=== PATIENT | female | born 1955 | race Caucasian/White ===

== ENCOUNTER 2021-06-24 22:59 | Inpatient (IN) | payer OTHER ==
[2021-06-25] MEDS ORDERED: ACETAMINOPHEN 1000 MG/100 ML BAG IVPB ONE (00:25)
[2021-06-25] MEDS ORDERED: ONDANSETRON 4 MG/2 ML VIAL IVPUSH ONE (00:25)
[2021-06-25] MEDS ORDERED: ACETAMINOPHEN INJECTION 100 ML IVPB ONE (00:28)
[2021-06-25 00:29] LABS: HEMATOCRIT 36.4 % (32.4-45.2); HEMOGLOBIN 12.6 GM/dL (10.7-15.3); MCH 27.9 pg (25.7-33.7); MCHC 34.7 g/dl (32.0-36.0); MEAN CELL VOLUME 80.3 fl (80-96); MEAN PLT VOLUME 9.3 fl (7.5-11.1); PLATELET COUNT 203 10^3/uL (134-434); RBC 4.53 M/mm3 (3.60-5.2); RDW 15.5 % (11.6-15.6); WHITE BLOOD COUNT 12.9 K/mm3 (4.0-10.0)
[2021-06-25] MEDS ORDERED: ONDANSETRON 4 MG/2 ML VIAL ONE (00:29)
[2021-06-25 00:47] LABS: CHLORIDE 99 mmol/L (98-107); SODIUM 137 mmol/L (136-145)
[2021-06-25 00:50] LABS: BLOOD UREA NITROGEN 58.5 mg/dL (7-18); CALCIUM 8.2 mg/dL (8.5-10.1); CO2 29 mmol/L (21-32); GLUCOSE,RANDOM 137 mg/dL (74-106); MAGNESIUM 2.4 mg/dL (1.8-2.4)
[2021-06-25] MEDS ORDERED: SODIUM CHLORIDE 1,000 ML IV ONE (00:51)
[2021-06-25 00:53] LABS: CREATININE 1.4 mg/dL (0.55-1.3); SGOT/AST 20 U/L (15-37); SGPT/ALT 39 U/L (13-61)
[2021-06-25 00:55] LABS: BILIRUBIN,TOTAL 0.8 mg/dL (0.2-1); TOT PROT 7.2 g/dl (6.4-8.2)
[2021-06-25 00:56] LABS: ALK PHOS 173 U/L (45-117)
[2021-06-25 00:58] LABS: ANION GAP 9 MMOL/L (8-16)
[2021-06-25] MEDS ORDERED: POTASSIUM CHLORIDE TABS 20 MEQ TABLET.ER (FP) PO ONE ×2 (01:20→02:59)
[2021-06-25 01:54] LABS: EPI CELLS 16 /uL (0-25.1); HYALINE CASTS 3 /uL (0-3.1); PH,URINE 5.5 (5.0-8.0); URINE APPEARANCE CLOUDY; URINE BACTERIA 3237 /uL (0-1359); URINE BILIRUBIN NEGATIVE (NEGATIVE); URINE COLOR YELLOW; URINE GLUCOSE (UA) NEGATIVE (NEGATIVE); URINE KETONE NEGATIVE (NEGATIVE); URINE LEUK ESTERASE 3+ (NEGATIVE); URINE NITRITE NEGATIVE (NEGATIVE); URINE PROTEIN 1+ (NEGATIVE); URINE UROBILINOGEN 0.2 mg/dL (0.2-1.0); URINE WBC 503 /uL (0-25.8)
[2021-06-25 02:15] LABS: ANISOCYTOSIS 0; MACROCYTOSIS 0
[2021-06-25] MEDS ORDERED: LACTATED RINGERS SOLUTION 1000 ML INFUS.BAG IV ONE (02:45)
[2021-06-25] MEDS ORDERED: CEFTRIAXONE 1 GM/50 ML BAG ONE (03:00)
[2021-06-25] MEDS ORDERED: LIDOCAINE 5% TOPICAL PATCH TP PRN (04:23)
[2021-06-25] MEDS ORDERED: SODIUM CHLORIDE 1,000 ML with POTASSIUM CHLORIDE 20 MEQ IV SCH (04:30)
[2021-06-25] MEDS: ACETAMINOPHEN 1000 MG/100 ML BAG IVPB PRN ×3 (06:53→18:36)
[2021-06-25] MEDS: HEPARIN NA (PORCINE) 5,000 UNITS/ML 1ML VIAL SQ SCH ×3 (06:54→21:19)
[2021-06-25 08:36] LABS: URINE RBC 29.6 /uL (0-23.9)
[2021-06-25 10:54] LABS: HEMATOCRIT 34.5 % (32.4-45.2); HEMOGLOBIN 11.8 GM/dL (10.7-15.3); MCH 27.9 pg (25.7-33.7); MCHC 34.2 g/dl (32.0-36.0); MEAN CELL VOLUME 81.5 fl (80-96); MEAN PLT VOLUME 9.4 fl (7.5-11.1); PLATELET COUNT 190 10^3/uL (134-434); RBC 4.23 M/mm3 (3.60-5.2); RDW 15.3 % (11.6-15.6); WHITE BLOOD COUNT 10.2 K/mm3 (4.0-10.0)
[2021-06-25 10:56] LABS: CALCIUM 7.7 mg/dL (8.5-10.1)
[2021-06-25 10:57] LABS: BLOOD UREA NITROGEN 50.4 mg/dL (7-18); MAGNESIUM 2.3 mg/dL (1.8-2.4)
[2021-06-25 11:00] LABS: CREATININE 1.2 mg/dL (0.55-1.3); PHOSPHOROUS 3.4 mg/dL (2.5-4.9)
[2021-06-25] MEDS ORDERED: DEXTROSE 5%-WATER 100 ML IVPB ONE (15:58)
[2021-06-25] MEDS ORDERED: cefTRIAXone SODIUM 1 GM VIAL ONE (15:58)
[2021-06-25] MEDS: CEFTRIAXONE 1 GM in DEXTROSE 5%-WATER 100 ML IVPB SCH (15:59)
[2021-06-25] MEDS: SODIUM CHLORIDE 0.9%/KCL 20 MEQ/1,000 ML INFUS.BAG IV SCH (18:36)
[2021-06-25] MEDS: POTASSIUM CHLORIDE TABS 20 MEQ TABLET.ER (FP) PO SCH (21:19)
[2021-06-25] MEDS: LIDOCAINE PATCH REMOVAL MC SCH (21:28)
[2021-06-25] MEDS: NYSTATIN POWDER 100,000 UNITS/GM - 15 GM TOPICAL POWDER TP SCH (21:28)
[2021-06-26] MEDS: ACETAMINOPHEN 1000 MG/100 ML BAG IVPB PRN ×3 (00:02→23:09)
[2021-06-26] MEDS ORDERED: ACETAMINOPHEN 1000 MG/100 ML BAG IVPB ONE (05:39)
[2021-06-26] MEDS: HEPARIN NA (PORCINE) 5,000 UNITS/ML 1ML VIAL SQ SCH ×3 (06:59→21:29)
[2021-06-26] MEDS ORDERED: cefTRIAXone SODIUM 1 GM VIAL ONE (09:34)
[2021-06-26] MEDS ORDERED: DEXTROSE 5%-WATER 100 ML IVPB ONE (09:34)
[2021-06-26] MEDS: LOSARTAN POTASSIUM 50 MG TABLET PO SCH (10:11)
[2021-06-26] MEDS: POTASSIUM CHLORIDE TABS 20 MEQ TABLET.ER (FP) PO SCH (10:11)
[2021-06-26] MEDS ORDERED: traMADol HCL 50 MG TABLET PO PRN (10:12)
[2021-06-26] MEDS: CEFTRIAXONE 1 GM in DEXTROSE 5%-WATER 100 ML IVPB SCH (10:12)
[2021-06-26] MEDS: NYSTATIN POWDER 100,000 UNITS/GM - 15 GM TOPICAL POWDER TP SCH ×2 (10:12→21:30)
[2021-06-26 12:28] LABS: HEMATOCRIT 33.9 % (32.4-45.2); HEMOGLOBIN 11.4 GM/dL (10.7-15.3); MCH 27.5 pg (25.7-33.7); MCHC 33.6 g/dl (32.0-36.0); MEAN CELL VOLUME 81.7 fl (80-96); MEAN PLT VOLUME 9.3 fl (7.5-11.1); PLATELET COUNT 259 10^3/uL (134-434); RBC 4.16 M/mm3 (3.60-5.2); RDW 15.5 % (11.6-15.6)
[2021-06-26 12:44] LABS: CALCIUM 8.1 mg/dL (8.5-10.1)
[2021-06-26 12:48] LABS: CREATININE 0.8 mg/dL (0.55-1.3)
[2021-06-26 13:01] LABS: ANISOCYTOSIS 2+; MACROCYTOSIS 0
[2021-06-26 13:04] LABS: BLOOD UREA NITROGEN 24.9 mg/dL (7-18)
[2021-06-26] MEDS: SODIUM CHLORIDE 0.9%/KCL 20 MEQ/1,000 ML INFUS.BAG IV SCH (13:48)
[2021-06-26] MEDS ORDERED: IBUPROFEN 400 MG TABLET (FP) PO ONE (13:57)
[2021-06-26] MEDS: SODIUM CHLORIDE 0.45% 1,000 ML IV SCH ×2 (14:07→23:07)
[2021-06-26] MEDS ORDERED: POTASSIUM CHLORIDE TABS 20 MEQ TABLET.ER (FP) PO ONE (17:52)
[2021-06-26] MEDS: LIDOCAINE PATCH REMOVAL MC SCH (23:00)
[2021-06-27] MEDS: ACETAMINOPHEN 1000 MG/100 ML BAG IVPB PRN ×2 (05:17→11:03)
[2021-06-27] MEDS: HEPARIN NA (PORCINE) 5,000 UNITS/ML 1ML VIAL SQ SCH ×3 (05:17→21:29)
[2021-06-27 07:15] LABS: BLOOD UREA NITROGEN 18.4 mg/dL (7-18); CALCIUM 7.7 mg/dL (8.5-10.1)
[2021-06-27 07:19] LABS: CREATININE 0.5 mg/dL (0.55-1.3)
[2021-06-27 07:21] LABS: BASO % 0.5 % (0-2.0); EOS % 0.9 % (0-4.5); HEMATOCRIT 33.2 % (32.4-45.2); HEMOGLOBIN 10.9 GM/dL (10.7-15.3); LYMPH % 6.6 % (8-40); MCHC 32.9 g/dl (32.0-36.0); MEAN CELL VOLUME 82.1 fl (80-96); MEAN PLT VOLUME 9.5 fl (7.5-11.1); MONO % 4.7 % (3.8-10.2); NEUT % 87.3 % (42.8-82.8); PLATELET COUNT 291 10^3/uL (134-434); RBC 4.05 M/mm3 (3.60-5.2); RDW 15.9 % (11.6-15.6); WHITE BLOOD COUNT 12.2 K/mm3 (4.0-10.0)
[2021-06-27] MEDS: SODIUM CHLORIDE 0.45% 1,000 ML IV SCH ×2 (07:49→16:23)
[2021-06-27] MEDS: LOSARTAN POTASSIUM 50 MG TABLET PO SCH (09:45)
[2021-06-27] MEDS ORDERED: cefTRIAXone SODIUM 1 GM VIAL ONE (09:51)
[2021-06-27] MEDS ORDERED: DEXTROSE 5%-WATER 100 ML IVPB ONE (09:51)
[2021-06-27] MEDS: CEFTRIAXONE 1 GM in DEXTROSE 5%-WATER 100 ML IVPB SCH (09:52)
[2021-06-27] MEDS: NYSTATIN POWDER 100,000 UNITS/GM - 15 GM TOPICAL POWDER TP SCH ×2 (09:53→21:30)
[2021-06-27] MEDS ORDERED: ACETAMINOPHEN 1000 MG/100 ML BAG IVPB ONE (18:57)
[2021-06-27] MEDS: LIDOCAINE PATCH REMOVAL MC SCH (21:29)
[2021-06-27] MEDS: MELATONIN 5 MG TABLETS PO PRN (23:29)
[2021-06-28] MEDS: ACETAMINOPHEN 1000 MG/100 ML BAG IVPB PRN ×4 (02:32→21:01)
[2021-06-28] MEDS: HEPARIN NA (PORCINE) 5,000 UNITS/ML 1ML VIAL SQ SCH ×3 (06:35→21:03)
[2021-06-28] MEDS: LOSARTAN POTASSIUM 50 MG TABLET PO SCH (09:01)
[2021-06-28] MEDS: NYSTATIN POWDER 100,000 UNITS/GM - 15 GM TOPICAL POWDER TP SCH ×2 (09:02→21:03)
[2021-06-28 10:05] LABS: HEMATOCRIT 35.1 % (32.4-45.2); HEMOGLOBIN 11.6 GM/dL (10.7-15.3); MCH 27.1 pg (25.7-33.7); MEAN CELL VOLUME 82.2 fl (80-96); MEAN PLT VOLUME 9.6 fl (7.5-11.1); PLATELET COUNT 413 10^3/uL (134-434); RBC 4.27 M/mm3 (3.60-5.2); WHITE BLOOD COUNT 11.5 K/mm3 (4.0-10.0)
[2021-06-28 10:25] LABS: CALCIUM 7.8 mg/dL (8.5-10.1)
[2021-06-28 10:29] LABS: CREATININE 0.4 mg/dL (0.55-1.3)
[2021-06-28] MEDS ORDERED: amLODIPine BESYLATE 5 MG TABLET (FP) PO ONE (10:45)
[2021-06-28] MEDS ORDERED: CELECOXIB 200 MG CAPSULE PO ONE (11:00)
[2021-06-28] MEDS: SODIUM CHLORIDE 0.45% 1,000 ML IV SCH (14:46)
[2021-06-28] MEDS: MELATONIN 5 MG TABLETS PO PRN (21:01)
[2021-06-28] MEDS: LIDOCAINE PATCH REMOVAL MC SCH (21:02)
[2021-06-28 22:00] VITALS: BMI 44.9
[2021-06-28] MEDS ORDERED: CELECOXIB 100 MG CAPSULE PO ONE (23:45)
[2021-06-29] MEDS ORDERED: ACETAMINOPHEN 1000 MG/100 ML BAG IVPB ONE (01:47)
[2021-06-29] MEDS: HEPARIN NA (PORCINE) 5,000 UNITS/ML 1ML VIAL SQ SCH ×3 (06:06→21:08)
[2021-06-29] MEDS ORDERED: amLODIPine BESYLATE 5 MG TABLET (FP) PO ONE (07:45)
[2021-06-29] MEDS: LOSARTAN POTASSIUM 50 MG TABLET PO SCH (09:16)
[2021-06-29] MEDS: NYSTATIN POWDER 100,000 UNITS/GM - 15 GM TOPICAL POWDER TP SCH ×2 (09:16→21:09)
[2021-06-29] MEDS: CELECOXIB 100 MG CAPSULE PO SCH ×2 (09:16→21:09)
[2021-06-29] MEDS: LIDOCAINE PATCH REMOVAL MC SCH (22:29)
[2021-06-30] MEDS: HEPARIN NA (PORCINE) 5,000 UNITS/ML 1ML VIAL SQ SCH ×2 (06:37→14:03)
[2021-06-30] MEDS: NYSTATIN POWDER 100,000 UNITS/GM - 15 GM TOPICAL POWDER TP SCH (09:45)
[2021-06-30] MEDS: CELECOXIB 100 MG CAPSULE PO SCH (09:46)
[2021-06-30] MEDS: LOSARTAN POTASSIUM 50 MG TABLET PO SCH (09:46)
[2021-06-30 15:53] VITALS: BP 145/72; PULSE 90; TEMP 97.6
[2021-06-30] MEDS ORDERED: LACTOBACILLUS ACIDOPHILUS 1 TABLET PO SCH (22:00)
== END 2021-06-30 18:25 | disposition home or self-care (01) | DRG 392 ==
LOC: JER 22:59 → JERBED 06-25 01:43 → J6S 06-25 06:45
PROVIDERS: ADMIT Hospitalist; ATTEND Internal Medicine
DX: A08.4 Viral intestinal infection, unspecified (principal); N39.0 Urinary tract infection, site not specified; Z68.41 Body mass index [BMI] 40.0-44.9, adult; N17.9 Acute kidney failure, unspecified; E66.01 Morbid (severe) obesity due to excess calories; E87.6 Hypokalemia; I10 Essential (primary) hypertension; B96.20 Unspecified Escherichia coli [E. coli] as the cause of diseases classified elsewhere; E86.0 Dehydration
CPT/HCPCS: 36415; 71045-TC-FY; 72100-TC-FY; 80048; 80053; 81003; 82550; 83735; 84100; 84443; 85025; 85027; 87086; 87186; 87804; 93005; 93010; 94010; 97116-GP; 97161-GP; 99285-25; C9803-CS; J1644; U0003; U0005